=== PATIENT | female | born 1945 | race Caucasian/White ===

== ENCOUNTER 2017-10-05 13:26 | Outpatient (CLI) | payer OTHER, SELFPAY ==
--- NOTE | 2017-10-05 14:20 | DI.REPORT_ITS ---
SYMPTOMS/DIAGNOSIS: LOW BACK PAIN, M54.5 LUMBAR SPINE: AP, lateral and bilateral oblique views. No priors for comparison. Comparison chest x-ray is 12/23/11. There are five lumbar-type vertebral bodies. There is normal alignment. No spondylolysis or spondylolisthesis is seen. There is an old compression deformity of the superior endplate of L2. There is loss of approximately 30% of the height of the vertebral body. There does appear to be some retropulsion of the posterior vertebral body into the spinal canal. There also is a compression deformity of the superior endplate of T12 with loss of approximately 20% of the height of the vertebral body noted. No other compression fracture deformities are seen. No acute subluxations are present. There is disc space narrowing and vacuum discs at L2-3 and L4-L5. Endplate osteophytes are present throughout the lumbar spine, most marked at the L2-3, L3-4 and L4-L5 levels. There are degenerative changes of the facets noted. There is atherosclerosis of the abdominal aorta noted. IMPRESSION: 1. Moderate degenerative changes of the lumbar spine. 2. Old compression fracture deformities of T12 and L2. There is probable narrowing of the central spinal canal due to the compression fracture of L2.
== END 2017-10-05 13:27 ==
PROVIDERS: PCP Family Medicine; Visit Provider Specialist/Technologist Athletic Trainer
DX: M54.5 Low back pain (principal); M51.36 Other intervertebral disc degeneration, lumbar region; M48.55XD Collapsed vertebra, not elsewhere classified, thoracolumbar region, subsequent encounter for fracture with routine healing
CPT/HCPCS: 72110